=== PATIENT | female | born 1945 | race Caucasian/White ===

== ENCOUNTER 2023-02-12 13:09 | Emergency (ER) | payer MEDICAID ==
[~2023-02-12] VITALS: Ht 154.9 cm; Wt 67.1 kg
--- NOTE | 2023-02-12 13:21 | NUR ---
PT IS IN ROOM #1A. DR MORENO EVALUATED THE PT.
[2023-02-12] MEDS ORDERED: ACET-2605 PO (13:54)
[2023-02-12] MEDS ORDERED: ACETAMINOPHEN 325 MG TABLET PO ONE (14:00)
[2023-02-12] MEDS ORDERED: ACETAMINOPHEN 325 MG TABLET ONE (14:00)
[2023-02-12 15:54] VITALS: BP 138/68
--- NOTE | 2023-02-12 15:54 | NUR ---
PT WAS D/C'd TO HOME. D/C INSTRUCTIONS GIVEN TO THE PT BY DR MORENO.
== END 2023-02-12 15:55 | disposition home or self-care (01) ==
LOC: ER 13:09
DX: S09.90XA Unspecified injury of head, initial encounter (principal); M25.562 Pain in left knee; M25.561 Pain in right knee; M79.642 Pain in left hand; W01.0XXA Fall on same level from slipping, tripping and stumbling without subsequent striking against object, initial encounter; Y93.01 Activity, walking, marching and hiking; Y92.488 Other paved roadways as the place of occurrence of the external cause; I10 Essential (primary) hypertension
CPT/HCPCS: 70450; 73130; A4663